=== PATIENT | female | born 1990 | race Hispanic/Latino ===

== ENCOUNTER 2017-03-09 18:51 | Emergency (ER) | payer BC, MEDICAID ==
[2017-03-09 19:08] VITALS: BP 118/67; PULSE 84; RESP 18; TEMP 98.3; O2SAT 100
--- NOTE | 2017-03-09 20:52 | ED PDOC ---
HPI: Female Pain Time Seen by Provider: 03/09/17 19:00 Chief Complaint (Nursing): Abdominal Pain Chief Complaint (Provider): Abdominal Pain History Per: Patient History/Exam Limitations: no limitations Onset/Duration Of Symptoms: Days (today) Current Symptoms Are (Timing): Still Present Severity: Moderate Quality Of Discomfort: Pressure Associated Symptoms: denies: Fever, Nausea, Vomiting, Back Pain, Urinary Symptoms (no dysuria/hematuria), Other (no vaginal bleeding/dizziness) Additional Complaint(s): Seema Suggs is a 27 year old female, with no pertinent past medical history , who presents to the ED on 03/09/17 for the evaluation of a moderate amount of lower abdominal pressure that she has experienced intermittently over the course of the past month. Home test taken yesterday reportedly (+), reportedly first . Denies fever, nausea, vomiting, dizziness, back pain , dysuria, hematuria or vaginal bleeding. PMD: Terrence Helms Jr. Past Medical History Reviewed: Historical Data, Nursing Documentation, Vital Signs Vital Signs: Last Vital Signs Temp 98.3 F 03/09/17 19:05 Pulse 84 03/09/17 19:05 Resp 18 03/09/17 19:05 BP 118/67 03/09/17 19:05 Pulse Ox 100 03/09/17 19:05 - Medical History PMH: Migraine - Surgical History Other surgeries: gastric sleeve - Family History Family History: States: Unknown Family Hx - Living Arrangements Living Arrangements: With Family - Immunization History Hx Tetanus Toxoid Vaccination: No Hx Influenza Vaccination: Yes Hx Pneumococcal Vaccination: No - Home Medications Home Medications: Ambulatory Orders Medication Instructions Recorded No Known Home Med 03/09/17 - Allergies Allergies/Adverse Reactions: Allergies Allergy/AdvReac Type Severity Reaction Status Date / Time acetaminophen [From Percocet] Allergy SHORTNESS Verified 03/09/17 19:04 OF BREATH oxycodone HCl [From Percocet] Allergy SHORTNESS Verified 03/09/17 19:04 OF BREATH Review of Systems Constitutional: Negative for: Fever Gastrointestinal: Positive for: Abdominal Pain (intermittent lower abdominal pressure). Negative for: Nausea, Vomiting Genitourinary Female: Negative for: Dysuria, Hematuria, Vaginal Bleeding Musculoskeletal: Negative for: Back Pain Neurological: Negative for: Dizziness Physical Exam - Reviewed Nursing Documentation Reviewed: Yes Vital Signs Reviewed: Yes - Physical Exam Appears: Positive for: Non-toxic, No Acute Distress Head Exam: Positive for: ATRAUMATIC, NORMOCEPHALIC Skin: Positive for: Normal Color, Warm, Dry Eye Exam: Positive for: Normal appearance. Negative for: Conjunctival injection Neck: Positive for: Normal Cardiovascular/Chest: Positive for: Regular Rate, Rhythm. Negative for: Murmur Respiratory: Positive for: Normal Breath Sounds. Negative for: Respiratory Distress Gastrointestinal/Abdominal: Positive for: Normal Exam, Soft. Negative for: Tenderness, Mass, Guarding, Rebound Back: Positive for: Normal Inspection Extremity: Positive for: Normal ROM (moving all extremities well) Neurologic/Psych: Positive for: Alert, Oriented - Laboratory Results Result Diagrams: 03/09/17 21:11 03/09/17 21:11 - ECG O2 Sat by Pulse Oximetry: 100 (RA) Pulse Ox Interpretation: Normal Medical Decision Making Medical Decision Makin:29 Initial Impression: abdominal pressure in setting of recent (+) home test Initial Plan: * Labs * Beta HCG * POC Test * Urinalysis * Urine C&S * Reevaluation 2322 US FINDINGS Gestation: Gestational sac. Yolk sac. No pole. Mean sac diameter of 0.5 cm , out of range. Uterus/cervix: No subchorionic hemorrhage. No cervical dilatation or effacement. Ovaries: Normal ovaries. No adnexal masses. Free fluid: No significant free fluid. IMPRESSION: 1. Intrauterine , of uncertain viability. Recommend followup. 2. Incidental/non-acute findings are described above. 0030 HCG Quant: [id number]. Patient will be discharged home dx early . Follow up with [facility] in 2 d to r/o ectopic. Instructed to take vitamins. pt agreeable to plan Upon re-evaluation, patient is feeling much better and is stable for discharge. Patient is medically stable and ready for discharge. Counseling has been provided and patient is in agreement. Return if symptoms persist or acutely worsen. Scribe Attestation: Documented by Olive Benitez, acting as a scribe for Facundo Tucker MD. Provider Scribe Attestation: All medical record entries made by the Scribe were at my direction and personally dictated by me. I have reviewed the chart and agree that the record accurately reflects my personal performance of the history, physical exam, medical decision making, and the department course for this patient. I have also personally directed, reviewed, and agree with the discharge instructions and disposition. Disposition - Clinical Impression Clinical Impression: Early stage of - Patient ED Disposition Is Patient to be Admitted: No Counseled Patient/Family Regarding: Studies Performed, Diagnosis, Need For Followup - Disposition Referrals: [facility] [Outside] [facility] [Outside] Disposition: Routine/Home Disposition Time: 21:00 Condition: IMPROVED Additional Instructions: follow up with [facility] in 2 days with mental health tech (or in the ER) for rule out ectopic return to the ED with any worsening or concerning symptoms take vitamins Instructions: Abdominal Pain in (ED) Print Language: NAMIBIAN
[2017-03-09 21:37] LABS: BASO % 0.7 % (0.0-2.0); EOS # 0.2 K/uL (0.0-0.7); EOS % 3.1 % (0.0-4.0); HEMATOCRIT 36.6 % (34.0-47.0); LYMPH # 2.9 K/uL (1.0-4.3); LYMPH % 50.7 % (20.0-40.0); MEAN CELL VOLUME 82.8 fl (81.0-99.0); MEAN CORPUSCULAR HGB CONC 32.6 g/dL (33.0-37.0); MEAN PLATELET VOLUME 7.8 fl (7.2-11.7); MONO # 0.3 K/uL (0.0-0.8); MONO % 5.9 % (0.0-10.0); NEUT # 2.3 K/uL (1.8-7.0); NEUT % 39.6 % (50.0-75.0); NRBC % 0.1 % (0.0-0.0); RED CELL DISTRIBUTION WIDTH 13.4 % (11.5-14.5); WHITE BLOOD COUNT 5.8 K/uL (4.8-10.8)
[2017-03-09 21:37] LABS: RBC URINE 2 /hpf (0-3); URINE BACTERIA RARE (<OCC); URINE BILIRUBIN NEGATIVE (NEGATIVE); URINE BLOOD NEGATIVE (NEGATIVE); URINE COLOR YELLOW (YELLOW); URINE GLUCOSE (UA) NEG (Normal); URINE KETONE NEGATIVE (NEGATIVE); URINE LEUKOCYTE ESTERASE MOD Leu/uL (Negative); URINE PROTEIN NEGATIVE (NEGATIVE); URINE UROBILINOGEN 0.2-1.0 mg/dL (0.2-1.0); WBC URINE 4 /hpf (0-5)
[2017-03-09 21:38] LABS: ALKALINE PHOSPHATASE 59 U/L (38-126); ALT/SGPT 26 U/L (9-52); AST/SGOT 18 U/L (14-36); BILIRUBIN,TOTAL 0.2 mg/dl (0.2-1.3); BLOOD UREA NITROGEN 10 mg/dl (7-17); CALCIUM 9.3 mg/dL (8.4-10.2); CARBON DIOXIDE 25 mmol/L (22-30); CHLORIDE 101 mmol/L (98-107); GFR AFRICAN-AMERICAN > 60; GLUCOSE,RANDOM 103 mg/dL (65-105); POTASSIUM 3.9 MMOL/L (3.6-5.0); SODIUM 135 mmol/l (132-148); TOTAL PROTEIN 7.5 G/DL (6.3-8.2)
--- NOTE | 2017-03-09 23:22 | US ---
EXAM: US , Transvaginal CLINICAL HISTORY: 27 years old, female; Pain; Other: Abd pain; Gestational age or lmp: 02/01/17; ; Additional info: First trimester pregnany abd pain TECHNIQUE: Real-time transvaginal obstetrical ultrasound of the maternal pelvis and a first trimester with image documentation. Transvaginal imaging was used for better evaluation of the fetus and adnexa. COMPARISON: No relevant prior studies available. FINDINGS: Gestation: Gestational sac. Yolk sac. No pole. Mean sac diameter of 0.5 cm, out of range. Uterus/cervix: No subchorionic hemorrhage. No cervical dilatation or effacement. Ovaries: Normal ovaries. No adnexal masses. Free fluid: No significant free fluid. IMPRESSION: 1. Intrauterine , of uncertain viability. Recommend followup. 2. Incidental/non-acute findings are described above.
== END 2017-03-10 00:50 | disposition home or self-care (01) ==
LOC: H.ER 18:51
DX: O26.91 Pregnancy related conditions, unspecified, first trimester (principal); Z3A.00 Weeks of gestation of pregnancy not specified